=== PATIENT | female | born 1935 | race Caucasian/White ===

== ENCOUNTER 2020-01-11 08:41 | Emergency (ER) | payer MEDICARE, OTHER, SELFPAY ==
[2020-01-11 08:53] VITALS: BP 153/65; PULSE 99; RESP 14; TEMP 36.8; O2SAT 99
--- NOTE | 2020-01-11 09:01 | ED.GENADULT ---
HPI - General Adult General Chief complaint: Ear Stated complaint: Ears Time Seen by Provider: 01/11/20 08:55 Source: patient Mode of arrival: ambulatory Limitations: no limitations History of Present Illness HPI narrative: 84-year-old female patient presents to the [facility] with complaints of bilateral ears being clogged since yesterday. Patient states that they feel full and she is having difficulty hearing out of them. Denies any pain. Denies any fevers, runny nose, stuffy nose, sneezing. Denies any sore throat, chest pain or shortness of breath. Patient denies take anything for her symptoms so far. Related Data Home Medications Medication Instructions Recorded Confirmed lorazepam 2 mg PO DAILY 01/11/20 01/11/20 lovastatin 20 mg PO DAILY 01/11/20 01/11/20 Allergies Allergy/AdvReac Type Severity Reaction Status Date / Time prednisone Allergy Agitated Verified 01/11/20 09:02 Review of Systems Review of Systems: Narrative: CONSTITUTIONAL: Denies fever, chills, or sweats. EYES: Denies visual changes, redness, or discharge. ENT: Denies rhinorrhea, congestion, sore throat, positive bilateral otalgia. CARDIOVASCULAR: Denies chest pain, palpitations, or edema. RESPIRATORY: Denies cough or dyspnea. GASTROINTESTINAL: Denies abdominal pain, nausea, vomiting, or diarrhea. GENITOURINARY: Denies dysuria or hematuria. SKIN: Denies rash or itching. MUSCULOSKELETAL: Denies back pain, joint pain, or myalgia. NEUROLOGIC: Denies headache, numbness, or weakness. PSYCHIATRIC: Denies anxiety or depression. PMFSH Comments At the time of my signature I agree with nursing past medical history, surgical, social, and family history. There is no relevant family history pertinent to the presenting complaint. Exam Narrative: Exam Narrative: GENERAL: Well-appearing, well-nourished, and in no acute distress. HEAD: Normocephalic, atraumatic. EYES: PERRLA and EOMI. ENT: Nares clear, no rhinorrhea or epistaxis. Mucous membranes moist. Posterior pharynx with no erythema, tonsillar margin, exudates or lesions present. Unable to assess bilateral TMs due to cerumen impaction. NECK: Supple. No lymphadenopathy CHEST: Clear to auscultation. No respiratory distress. HEART: Regular rate and rhythm. No murmur heard. Normal peripheral pulses. ABDOMEN: Soft, nontender, nondistended, normal active bowel sounds. EXTREMITIES: Normal range of motion. No edema. SKIN: Warm, dry, no rash. NEURO: No focal deficits. Alert and oriented x3. Course Vital Signs Vital signs: Vital Signs Temperature 36.8 C 01/11/20 08:53 Pulse Rate 99 01/11/20 08:53 Respiratory Rate 14 01/11/20 08:53 Blood Pressure 153/65 H 01/11/20 08:53 Pulse Oximetry 99 01/11/20 08:53 Temperature 36.8 C 01/11/20 08:53 Pulse Rate 99 01/11/20 08:53 Respiratory Rate 14 01/11/20 08:53 Blood Pressure 153/65 H 01/11/20 08:53 Pulse Oximetry 99 01/11/20 08:53 Vital signs reviewed. The patient has been informed that they may have pre-hypertension or Hypertension based on a BP reading in the department. I recommend that the patient call the primary care provider listed on their discharge instructions or a physician of their choice this week to arrange follow up for further evaluation of possible pre-hypertension or Hypertension Procedures Ear Wax Removal Both Ears: Ear Wax Removal Date: 01/11/20 Ear Wax Removal Time: 09:05 Cerumenolytic Used: 5-10% Sodium Bicarb solution Results: Re-examined: cerumen removed completely TM Examination: TM(s) intact, normal appearance Ear Canal Exam: atraumatic Patient Tolerated Procedure: well Complications: no problems Technique: ear canal irrigated and ear canal curetted Additional Comments: The patient had cerumen removed from the L and R ear canal with warm water and peroxide irrigation and a loop in order to visualize the TM. The TM has no perforations post proced
== END 2020-01-11 09:22 | disposition home or self-care (01) ==
PROVIDERS: Emergency Provider Nurse Practitioner Family
DX: H61.23 Impacted cerumen, bilateral (principal); H60.503 Unspecified acute noninfective otitis externa, bilateral; E78.00 Pure hypercholesterolemia, unspecified; F41.9 Anxiety disorder, unspecified
CPT/HCPCS: 69210; 99203; G0463